=== PATIENT | female | born 1975 | race American Indian/Alaskan Native ===

== ENCOUNTER 2019-04-11 04:31 | Emergency (ER) | payer SELFPAY ==
--- NOTE | 2019-04-11 04:47 | Emergency Department Report ---
ED Neck Pain/Injury HPI - General Chief Complaint: Neck Pain/Injury Stated Complaint: SEVERE NECK PAIN Time Seen by Provider: 04/11/19 04:43 Mode of arrival: Ambulatory Limitations: No Limitations - History of Present Illness Initial Comments: 43-year-old female patient without significant past medical history presents with complaints of left sided neck pain 2 days. She denies any specific injury. Patient states "I think I slipped on my neck from the other night". She states that upon waking yesterday her neck felt stiff on the left side and crampy. She denies any fever, cough, numbness or tingling, back pain, headache, weakness, dizziness, or vision changes. She states she tried heat and Excedrin without improvement. MD Complaint: neck pain Place: home Radiation: left lateral Severity scale (0 -10): 10 Quality: aching Consistency: constant Improves With: none - Related Data Previous Rx's Medication Instructions Recorded Last Taken Type Cyclobenzaprine [Flexeril] 10 mg PO BID PRN #20 tablet 06/21/18 Unknown Rx Naproxen 500 mg PO BID PRN #30 tablet 06/21/18 Unknown Rx Cyclobenzaprine [Flexeril] 10 mg PO TID PRN 5 Days #15 tablet 04/11/19 Unknown Rx Diclofenac Sodium 75 mg PO BID PRN #14 tablet. 04/11/19 Unknown Rx Allergies Allergy/AdvReac Type Severity Reaction Status Date / Time No Known Allergies Allergy Verified 06/20/18 23:05 ED Review of Systems ROS: Stated complaint: SEVERE NECK PAIN Other details as noted in HPI Comment: All other systems reviewed and negative Constitutional: denies: chills, diaphoresis, fever, malaise, weakness Eyes: denies: vision change ENT: denies: throat pain Respiratory: denies: cough, shortness of breath Musculoskeletal: as per HPI Neurological: denies: headache, weakness, numbness, paresthesias, confusion, abnormal gait ED Past Medical Hx - Past Medical History Previous Medical History?: Yes Hx Asthma: Yes (as child) - Surgical History Past Surgical History?: Yes Hx Cholecystectomy: Yes - Social History Smoking Status: Current Every Day Smoker Substance Use Type: None - Medications Home Medications: Home Medications Medication Instructions Recorded Confirmed Last Taken Type Cyclobenzaprine [Flexeril] 10 mg PO BID PRN #20 tablet 06/21/18 Unknown Rx Naproxen 500 mg PO BID PRN #30 tablet 06/21/18 Unknown Rx Cyclobenzaprine [Flexeril] 10 mg PO TID PRN 5 Days #15 tablet 04/11/19 Unknown Rx Diclofenac Sodium 75 mg PO BID PRN #14 tablet. 04/11/19 Unknown Rx ED Physical Exam - General Limitations: No Limitations General appearance: alert, in no apparent distress - Head Head exam: Present: atraumatic, normocephalic - Eye Eye exam: Present: normal appearance, PERRL, EOMI - Neck Neck exam: Present: tenderness (left paraspinal muscles and trapezius with spasm noted, no spinal tenderness noted). Absent: meningismus, lymphadenopathy - Expanded Neck Exam Expanded Neck exam: Absent: midline deformity, anterior neck swelling, thyroid mass - Respiratory Respiratory exam: Present: normal lung sounds bilaterally. Absent: respiratory distress - Cardiovascular Cardiovascular Exam: Present: regular rate - Rectal Rectal exam: Present: deferred - Extremities Exam Extremities exam: Present: full ROM - Back Exam Back exam: Present: full ROM. Absent: tenderness, paraspinal tenderness, vertebral tenderness - Neurological Exam Neurological exam: Present: alert, oriented X3 - Psychiatric Psychiatric exam: Present: normal affect, normal mood - Skin Skin exam: Present: warm, dry, intact, normal color. Absent: rash ED Course Vital Signs 04/11/19 04:37 Temperature 97.5 F L Pulse Rate 72 Respiratory 18 Rate Blood Pressure 118/66 O2 Sat by Pulse 100 Oximetry ED Medical Decision Making - Medical Decision Making Patient here for left sided neck pain. Denies injury. No meningeal signs or red flag symptoms. Patient given Toradol and Decadron. Range of motion of neck and pain has improved with meds area patient to DC home with muscle relaxers. Recommend follow-up with primary care provider. Discussed strict return precautions in detail with patient who states understanding. Critical care attestation.: If time is entered above; I have spent that time in minutes in the direct care of this critically ill patient, excluding procedure time. ED Disposition Clinical Impression: Neck strain Qualifiers: Encounter type: initial encounter Qualified Code(s): S16.1XXA - Strain of muscle, fascia and tendon at neck level, initial encounter Disposition: DC- TO HOME OR SELFCARE Is pt being admited?: No Condition: Stable Instructions: Muscle Spasm (ED), Cervical Spine Strain (ED) Prescriptions: Diclofenac Sodium 75 mg PO BID PRN #14 tablet. PRN Reason: Pain , Severe (7-10) Cyclobenzaprine [Flexeril] 10 mg PO TID PRN 5 Days #15 tablet PRN Reason: Muscle Spasm Referrals: PRIMARY CARE, [Primary Care Provider] - 3-5 Days
[2019-04-11] MEDS ORDERED: KETOROLAC 60 MG/2 ML INJ IM ONE (05:09)
[2019-04-11] MEDS ORDERED: DEXAMETHASONE 4 MG TAB PO ONE (05:10)
[2019-04-11 06:14] VITALS: BP 116/66
== END 2019-04-11 06:14 | disposition home or self-care (01) ==
LOC: ED 04:31
DX: S16.1XXA Strain of muscle, fascia and tendon at neck level, initial encounter (principal); J45.909 Unspecified asthma, uncomplicated; F17.200 Nicotine dependence, unspecified, uncomplicated; Z90.49 Acquired absence of other specified parts of digestive tract; Z79.899 Other long term (current) drug therapy; X58.XXXA Exposure to other specified factors, initial encounter; Y93.89 Activity, other specified; Y92.89 Other specified places as the place of occurrence of the external cause; Y99.8 Other external cause status
CPT/HCPCS: 96372; 99282; J1885; J8540

== ENCOUNTER 2019-09-19 13:20 | Emergency (ER) | payer SELFPAY ==
[2019-09-19 13:35] VITALS: BP 123/54
[2019-09-19] MEDS ORDERED: ACETAMINOPHEN 325 MG TAB PO ONE (13:44)
--- NOTE | 2019-09-19 13:44 | Event Note ---
ED Screening Note ED Screening Note: fever last night chills diarrhea several episodes no n/v no cough no SOB no hematochezia no abd pain no dysuria no dark urine PMHx none no sick contacts no recent travel no camping no recent abx LNMP: end august last time she took something for fever was last night This initial assessment/diagnostic orders/clinical plan/treatment(s) is/are subject to change based on patients health status, clinical progression and re- assessment by fellow clinical providers in the ED. Further treatment and workup at subsequent clinical providers discretion. Patient/guardian urged not to elope from the ED as their condition may be serious if not clinically assessed and managed. Initial orders include: labs, UA tylenol
[2019-09-19 14:08] LABS: Basophils % (Auto) 0.2 % (0.0-1.8); Eosinophils % (Auto) 0.1 % (0.0-4.3); Hematocrit 40.8 % (30.3-42.9); Lymphocytes # (Auto) 1.7 K/mm3 (1.2-5.4); Lymphocytes % (Auto) 15.7 % (13.4-35.0); Mean Corpuscular HGB Conc 34 % (30-34); Mean Corpuscular Volume 87 fl (79-97); Monocytes # (Auto) 1.1 K/mm3 (0.0-0.8); Monocytes % (Auto) 9.8 % (0.0-7.3); Platelet Count 150 K/mm3 (140-440); Red Blood Count 4.67 M/mm3 (3.65-5.03); Red Cell Distribution Width 12.5 % (13.2-15.2)
[2019-09-19 14:25] LABS: Alanine Aminotransferase 23 units/L (7-56); Albumin 3.8 g/dL (3.9-5); BUN/Creatinine Ratio 23; Blood Urea Nitrogen 14 mg/dL (7-17); Calcium 9.8 mg/dL (8.4-10.2); Hemolysis Index 2
--- NOTE | 2019-09-19 14:53 | XRay Report ---
CHEST 2 VIEWS INDICATION: fever, tachycardia. COMPARISON: None FINDINGS: Support devices: None. Heart: Within normal limits. Lungs/pleura: No acute air space or interstitial disease. No pneumothorax. Additional findings: None. IMPRESSION: No acute findings. Signer Name: Oskar Menjivar Jr, MD Signed: 09/19/2019 2:49 PM Workstation Name: [id number]
--- NOTE | 2019-09-19 15:26 | Emergency Department Report ---
- General Chief Complaint: Fever Stated Complaint: FEVER Time Seen by Provider: 09/19/19 13:42 Source: patient Mode of arrival: Ambulatory Limitations: No Limitations - History of Present Illness Initial Comments: 43-year-old -[place] female past medical history asthma presents emergency department complaining of having a 1 day history fever associated with coryza, myalgias and some diarrhea. She reports no coughing, shortness of breath, chest pain, chills, rashes, hemoptysis, hematemesis, abdominal pain, dysuria, hematuria, hematemesis, hematochezia. She reports no known contacts with the coronavirus nor has she had any foreign travel. MD Complaint: rhinorrhea, nasal congestion -: Sudden Severity: mild Quality: dull Consistency: constant Improves With: nothing Worsens With: nothing Associated Symptoms: myalgias, rhinorrhea, diarrhea. denies: chills, cough, c hest pain, shortness of breath, abdominal pain, nausea Treatments Prior to Arrival: none - Related Data Previous Rx's Medication Instructions Recorded Last Taken Type Cyclobenzaprine [Flexeril] 10 mg PO BID PRN #20 tablet 06/21/18 Unknown Rx Naproxen 500 mg PO BID PRN #30 tablet 06/21/18 Unknown Rx Cyclobenzaprine [Flexeril] 10 mg PO TID PRN 5 Days #15 tablet 04/11/19 Unknown Rx Diclofenac Sodium 75 mg PO BID PRN #14 tablet.dr 04/11/19 Unknown Rx Allergies Allergy/AdvReac Type Severity Reaction Status Date / Time No Known Allergies Allergy Verified 06/20/18 23:05 ED Review of Systems ROS: Stated complaint: FEVER Other details as noted in HPI Comment: All other systems reviewed and negative ED Past Medical Hx - Past Medical History Previous Medical History?: Yes Hx Asthma: Yes (as child) - Surgical History Past Surgical History?: Yes Hx Cholecystectomy: Yes - Social History Smoking Status: Never Smoker Substance Use Type: None - Medications Home Medications: Home Medications Medication Instructions Recorded Confirmed Last Taken Type Cyclobenzaprine [Flexeril] 10 mg PO BID PRN #20 tablet 06/21/18 Unknown Rx Naproxen 500 mg PO BID PRN #30 tablet 06/21/18 Unknown Rx Cyclobenzaprine [Flexeril] 10 mg PO TID PRN 5 Days #15 tablet 04/11/19 Unknown Rx Diclofenac Sodium 75 mg PO BID PRN #14 tablet. 04/11/19 Unknown Rx ED Physical Exam - General Limitations: No Limitations General appearance: alert, in no apparent distress - Head Head exam: Present: atraumatic, normocephalic - Eye Eye exam: Present: normal appearance, PERRL, EOMI - ENT ENT exam: Present: mucous membranes moist, other (Some nasal congestion with increased erythema to the left nasal turbinate region. No sinus tenderness to percussion. The drainage in the sinus and posterior pharynx is clear) - Neck Neck exam: Present: normal inspection, full ROM. Absent: meningismus, lymphadenopathy, thyromegaly - Respiratory Respiratory exam: Present: normal lung sounds bilaterally. Absent: respiratory distress, wheezes, rales, rhonchi, stridor, chest wall tenderness, accessory muscle use - Cardiovascular Cardiovascular Exam: Present: regular rate, normal rhythm. Absent: systolic murmur, diastolic murmur, rubs, gallop - GI/Abdominal GI/Abdominal exam: Present: soft, normal bowel sounds - Extremities Exam Extremities exam: Present: normal inspection - Back Exam Back exam: Present: normal inspection - Neurological Exam Neurological exam: Present: alert, oriented X3 - Psychiatric Psychiatric exam: Present: normal affect, normal mood - Skin Skin exam: Present: warm, dry, intact, normal color. Absent: rash ED Course Vital Signs 09/19/19 09/19/19 13:31 15:14 Temperature 100.9 F H Pulse Rate 136 H 106 H Respiratory 18 Rate Blood Pressure 123/54 O2 Sat by Pulse 98 97 Oximetry ED Medical Decision Making - Lab Data Result diagrams: 09/19/19 13:54 09/19/19 13:54 - Medical Decision Making This patient presents with lower respiratory symptoms concerning for viral syndrome including flu. Patient does not meet criteria for COVID-19. Doubt pneumonia, sepsis or other serious bacterial infection or acute emergent condition. Is otherwise well- appearing with acceptable vitals and reassuring physical examination and is safe to be discharged home. Patient lacks serious medical comorbidities that would require admission. Patient is nontoxic and although symptomatic otherwise safe to go home. Will provide strict return precautions and instructions on self isolation/quarantine and anticipatory guidance. Vital signs heart rate is 106 she maintains the appropriate oxygen saturation with ambulation. Chest x-ray is clear no evidence of any infiltrate, effusion, or inflammation at this present time. Current temperature 100.9 advised patient on antipyretics Critical care attestation.: If time is entered above; I have spent that time in minutes in the direct care of this critically ill patient, excluding procedure time. ED Disposition Clinical Impression: Fever, Viral arthritis Disposition: DC-01 TO HOME OR SELFCARE Is pt being admited?: No Does the pt Need Aspirin: No Condition: Stable Instructions: Viral Syndrome (ED), Fever in Adults (ED), COVID-19 Additional Instructions: Please adhere to the patient instructions as we discussed although currently your symptoms are not consistent with an overt assessment of COVID-19 this could change within the next few days. Please return to the emergency department should you experience any coughing up blood, shortness of breath, severe fever, chest pain, or any suggestion that your condition is worsening. Your chest x- ray was normal your vital signs were stable with a slight elevation in your heart rate at 106 please make sure to hydrate well and take the antipyretics for your temperature increased on your antioxidant vitamins Referrals: PRIMARY CARE, [Primary Care Provider] - 3-5 Days
== END 2019-09-19 15:43 | disposition home or self-care (01) ==
LOC: ED 13:20
DX: M13.88 Other specified arthritis, other site (principal); J45.909 Unspecified asthma, uncomplicated; Z90.49 Acquired absence of other specified parts of digestive tract; Z79.899 Other long term (current) drug therapy
CPT/HCPCS: 36415; 71046; 80053; 83690; 83735; 84439; 84443; 84703; 85025; 99283